=== PATIENT | male | born 2000 | race Caucasian/White ===

== ENCOUNTER 2019-03-05 14:28 | Emergency (ER) | payer OTHER, SELFPAY ==
[2019-03-05 15:03] VITALS: BP 127/81; PULSE 88; RESP 13; TEMP 37; O2SAT 100
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
[2019-03-05] MEDS: TET,DIPH,PERTUSS(ACELL),VAC/PF 0.5 ML SYRINGE IM (16:12)
[2019-03-05 16:47] VITALS: BP 120/73; PULSE 68; RESP 16; O2SAT 100
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
== END 2019-03-05 17:01 | disposition home or self-care (01) ==
PROVIDERS: Emergency Provider Nurse Practitioner Family
DX: T14.8XXA Other injury of unspecified body region, initial encounter (principal); S12.501A Unspecified nondisplaced fracture of sixth cervical vertebra, initial encounter for closed fracture; S22.030A Wedge compression fracture of third thoracic vertebra, initial encounter for closed fracture; S22.040A Wedge compression fracture of fourth thoracic vertebra, initial encounter for closed fracture; S22.020A Wedge compression fracture of second thoracic vertebra, initial encounter for closed fracture; S06.0X1A Concussion with loss of consciousness of 30 minutes or less, initial encounter; V86.59XA Driver of other special all-terrain or other off-road motor vehicle injured in nontraffic accident, initial encounter; Z23 Encounter for immunization
CPT/HCPCS: 70450; 72072; 72125; 90471; 99283; 90715

== ENCOUNTER → 2019-03-20 09:06 | Outpatient (CLI) | payer OTHER, SELFPAY ==
--- NOTE | 2019-03-20 | DI.MRI.S_ITS ---
PROCEDURE: MR CERVICAL SPINE WO CON INDICATIONS: Cervicalgia TECHNIQUE: Noncontrast sagittal T1 spin echo and T2 fast spin echo, sagittal STIR, foraminal oblique sagittal T2 fast spin echo, and axial gradient echo or T2 fast spin echo through the cervical spine. COMPARISON: None. FINDINGS: Image quality: Excellent. Alignment and Curvature: There is normal bony alignment. Bone Marrow: Marrow demonstrates normal overall signal. Spinal Cord: Visualized spinal cord has normal size and signal. No cerebellar tonsillar herniation. Paraspinous Soft Tissues: No paravertebral masses. Prevertebral soft tissues are normal in thickness. C2-C3: Normal appearance. C3-C4: Normal appearance. C4-C5: Normal appearance. C5-C6: Normal appearance. C6-C7: Normal appearance. C7-T1: Normal appearance. IMPRESSION: 1. Negative examination. 2. No central stenosis. 3. No neural foraminal narrowing. 4. No neural compression. Dictated by: Kary Rios MD, PhD on 03/20/2019 at 12:02 Approved by: Kary Rios MD, PhD on 03/20/2019 at 12:16
== END ==
PROVIDERS: PCP Family Medicine; Visit Provider Orthopaedic Surgery Orthopaedic Surgery of the Spine
DX: M54.2 Cervicalgia (principal)
CPT/HCPCS: 72141

== ENCOUNTER → 2024-06-22 16:50 | Outpatient (CLI) | payer OTHER, MEDICAID, SELFPAY | PROVIDERS: PCP Family Medicine; Visit Provider Physician Assistant Surgical | DX: R30.0 Dysuria (principal) | CPT/HCPCS: 81002; 87086 ==

== ENCOUNTER 2024-08-03 18:20 | Emergency (ER) | payer OTHER, SELFPAY ==
[2024-08-03 18:42] VITALS: BP 165/101; PULSE 98; RESP 14; TEMP 37.7; O2SAT 100; BMI 19.3
[2024-08-03 19:10] LABS: Add Manual Diff / Slide Review NO; Basophils Absolute Auto 100 /uL (0-100); Basophils Percent Auto 0.9 % (0-2); Eosinophils Absolute Auto 0 /uL (0-450); Eosinophils Percent Auto 0.1 % (2-4); Hematocrit 46.1 % (41-53); Hemoglobin 15.5 g/dL (13.5-17.5); Lymphocytes Absolute Auto 2300 /uL (1100-4500); Lymphocytes Percent Auto 29.8 % (25-40); Mean Corpuscular HGB Conc 33.5 % (30-36); Mean Corpuscular Hemoglobin 31.8 PG (26-34); Mean Corpuscular Volume 94.8 fL (80-100); Monocytes Absolute Auto 500 /uL (0-900); Monocytes Percent Auto 6.6 % (3-14); Neutrophils Absolute Auto 4900 /uL (1500-7000); Neutrophils Percent Auto 62.6 % (50-75); Platelet Count 309 X10^3/uL (150-400); Red Blood Cell Count 4.86 X10^6/uL (4.5-5.9); Red Cell Distribution Width 12.3 % (11.6-14.8); White Blood Cell Count 7.8 X10^3/uL (4.5-11.0)
--- NOTE | 2024-08-03 19:20 | ED_ITS ---
HPI - General Adult General Chief complaint: Abdominal Pain Stated complaint: upper left quad px Time Seen by Provider: 08/03/24 18:47 Source: patient Mode of arrival: Ambulatory History of Present Illness HPI narrative: Patient was a 24-year-old male. Despite the stated complaint that this is a left upper quadrant abdominal pain patient's discomfort is in his right upper quadrant. He states the symptoms started earlier today. He thinks that it was after he vomited. He was not currently nauseous or vomited since that time. He also states he has been having some loose stools which does not change the discomfort. No urinary symptoms. No skin changes. No prior abdominal surgeries. No fevers. No recent travel. Pain does not necessarily change with palpation or movement. He reports the discomfort is somewhat better now than what it was earlier. Related Data Previous Rx's Medication Instructions Recorded doxycycline hyclate 100 mg tablet 100 mg PO DAILY #30 tabs 06/30/24 Allergies Allergy/AdvReac Type Severity Reaction Status Date / Time amoxicillin Allergy Mild Rash Verified 08/03/24 18:42 Penicillins Allergy Mild Rash Verified 08/03/24 18:42 Review of Systems Review of Systems Narrative: See HPI Patient History Medical History Allergies (~2003) Cystic acne (~2014) Family history non-contributory Social History Smoking Status: Current every day smoker Smoking Status: Current every day smoker Exam Initial Vital Signs Initial Vital Signs: Vital Signs Temperature 99.8 F H 08/03/24 18:42 Pulse Rate 98 H 08/03/24 18:42 Respiratory Rate 14 08/03/24 18:42 Blood Pressure 165/101 H 08/03/24 18:42 Pulse Oximetry 100 08/03/24 18:42 Oxygen Delivery Method Room Air 08/03/24 18:42 Const General: cooperative, comfortable and No ill appearing [facility] Head: normal to inspection and normocephalic Resp Effort & Inspection: normal respiratory effort GI Inspection: normal to inspection and non-distended Palpation: soft, No firm, No guarding and tender Skin General: no rashes or lesions noted Course Orders Ordered: ED Orders 08/03/24 18:58 Complete Blood Count AUTO DIFF Stat Comprehensive Metabolic Panel Stat Lipase Stat 08/03/24 19:25 Urine Microscopic Stat Discontinued Medications Ondansetron HCl (Ondansetron 4 Mg/2 Ml Inj) 4 mg IV NOW PRN PRN Reason: Nausea And Vomiting Ondansetron HCl (Ondansetron 4 Mg Odt) 4 mg PO NOW PRN PRN Reason: Nausea And Vomiting Vital Signs Vital signs: Vital Signs - 8 hr 08/03/24 18:42 08/03/24 19:28 Temperature 99.8 F H Pulse Rate 98 H 93 H Respiratory Rate 14 18 Blood Pressure 165/101 H 135/86 Pulse Oximetry 100 100 Oxygen Delivery Method Room Air Room Air Medical Decision Making Lab Data Lab results reviewed: Yes I reviewed the patient's lab results. 08/03/24 18:58 08/03/24 18:58 Labs: Lab Results 08/03/24 08/03/24 Range/Units 18:58 19:25 WBC 7.8 (4.5-11.0) X10^3/uL RBC 4.86 (4.5-5.9) X10^6/uL Hgb 15.5 (13.5-17.5) g/dL Hct 46.1 (41-53) % MCV 94.8 (80-100) fL MCH 31.8 (26-34) PG MCHC 33.5 (30-36) % RDW 12.3 (11.6-14.8) % Plt Count 309 (150-400) X10^3/uL Neut % (Auto) 62.6 (50-75) % Lymph % (Auto) 29.8 (25-40) % [place] % (Auto) 6.6 (3-14) % Eos % (Auto) 0.1 L (2-4) % Baso % (Auto) 0.9 (0-2) % Neut # (Auto) 4900 (3533-0426) /uL Lymph # (Auto) 2300 (9795-5731) /uL [place] # (Auto) 500 (0-900) /uL Eos # (Auto) 0 (0-450) /uL Baso # (Auto) 100 (0-100) /uL Sodium 137 (137-145) mmol/L Potassium 3.9 (3.4-5.1) mmol/L Chloride 101 (98-107) mmol/L Carbon Dioxide 28 (22-32) mmol/L BUN 9 (9-20) mg/dL Creatinine 0.83 (0.66-1.25) mg/dL Estimated GFR > 60 (>60) mL/min BUN/Creatinine Ratio 10.8 (6-22) Glucose 99 (70-100) mg/dL Calcium 10.1 (8.4-10.2) mg/dL Total Bilirubin 0.8 (0.2-1.3) mg/dL AST 41 (17-59) IU/L ALT 33 (<50) IU/L Alkaline Phosphatase 52 (38-126) U/L Total Protein 8.0 (6.3-8.2) g/dL Albumin 5.0 (3.5-5.0) g/dL Globulin 3.0 (1.7-4.1) g/dL Albumin/Globulin Ratio 1.7 (1.0-2.8) Lipase 53 (23-300) U/L Urine RBC None seen (0-5/HPF) Urine WBC None seen (0-5/HPF) Ur Squamous Epith Cells None seen (0-5/HPF) Urine Bacteria None seen (None) Ur Culture Indicated? Cult not indicated Vol Urine Centrifuged 10ml (spun) Urine Dip Bedside Urine Glucose Negative Bedside Urine Bilirubin - Negative Bedside Urine Ketone - Negative Urine Specific [place] 1.010 Bedside Urine Occult Blood - Negative Bedside Urine pH 7.5 Bedside Urine Protein - Negative Bedside Urine Urobilinogen - Negative Bedside Urine Nitrite - Negative Bedside Urine Leukocytes +/- 15 Esterase Point of care testing: Urine Dip Bedside Urine Glucose Negative Bedside Urine Bilirubin - Negative Bedside Urine Ketone - Negative Urine Specific [place] 1.010 Bedside Urine Occult Blood - Negative Bedside Urine pH 7.5 Bedside Urine Protein - Negative Bedside Urine Urobilinogen - Negative Bedside Urine Nitrite - Negative Bedside Urine Leukocytes +/- 15 Esterase MDM Narrative Medical decision making narrative: Patient was has a benign abdominal exam. No skin changes over the area concerning for zoster. His labs are unremarkable. Urinalysis is unremarkable. I have low suspicion that this is renal colic. Low suspicion that this is biliary colic. Low suspicion for appendicitis/bowel obstruction based on his presentation. Provided reassurance. Will hold on a CT scan for now although informed the patient that if he has worsening symptoms or new symptoms that he does need to return to the emergency department for re-evaluation. He expressed understanding and agreement with the plan. Discharge Plan Departure Patient Disposition: Home Clinical Impression: Abdominal pain Instructions: DI for Abdominal Pain-Adult Activity Restrictions/Additional Instructions: I recommend just conservative measures now to include Tylenol and or ibuprofen. If you start to develop new symptoms or worsening symptoms or develop a rash please return to the emergency department for further evaluation. Prescriptions: No Action doxycycline hyclate 100 mg tablet 100 mg PO DAILY Qty: 30 2RF Referrals: Chaya Tran MD [Primary Care Provider] - Stand Alone Forms: Patient Portal/API/Survey
[2024-08-03 19:23] LABS: Alanine Aminotransferase 33 IU/L (<50); Albumin Globulin Ratio 1.7 (1.0-2.8); Alkaline Phosphatase 52 U/L (38-126); Aspartate Aminotransferase 41 IU/L (17-59); BUN Creatinine Ratio 10.8 (6-22); Bilirubin Total 0.8 mg/dL (0.2-1.3); Blood Urea Nitrogen 9 mg/dL (9-20); Calcium 10.1 mg/dL (8.4-10.2); Carbon Dioxide 28 mmol/L (22-32); Chloride 101 mmol/L (98-107); Estimated Glomerular Filt Rate > 60 mL/min (>60); Glucose 99 mg/dL (70-100); HEMOLYSIS < 15 (0-50); Lipase 53 U/L (23-300); Potassium 3.9 mmol/L (3.4-5.1); Sodium 137 mmol/L (137-145)
[2024-08-03 19:28] VITALS: BP 135/86; PULSE 93; RESP 18; O2SAT 100
[2024-08-03 19:42] LABS: Bacteria Urine None Seen; Culture Indicated Urine Cult Not Indicated; RBC Urine None Seen (0-5/HPF); Squamous Epithelial Cell Urine None Seen (0-5/HPF); Urine Volume 10mL (spun); WBC Urine None Seen (0-5/HPF)
== END 2024-08-03 20:01 | disposition home or self-care (01) ==
PROVIDERS: Emergency Provider Emergency Medicine; PCP Family Medicine
DX: R10.12 Left upper quadrant pain (principal); R10.11 Right upper quadrant pain
CPT/HCPCS: 36415; 80053; 81003; 81015; 83690; 85025; 99283

== ENCOUNTER → 2024-10-19 13:55 | Outpatient (CLI) | payer OTHER, SELFPAY ==
--- NOTE | 2024-10-19 13:57 | DI.US.S_ITS ---
PROCEDURE: US SCROTUM INDICATIONS: Lump in scrotum TECHNIQUE: Real-time scanning was performed of the scrotum and testicles, with image documentation. Color and pulse Doppler interrogation was performed of both testicles. COMPARISON: None. FINDINGS: Right: Testicle is normal in size at 5.0 x 2.2 x 3.2 cm, and homogenous in echotexture. Epididymis is normal in overall size and morphology. No hydrocele or varicoceles. Overlying scrotal skin is normal in thickness. Left: Testicle is normal in size at 4.1 x 2.5 x 2.9 cm, and homogeneous in echotexture. Epididymis is normal in overall size and morphology. Small hydrocele . No varicoceles. Overlying scrotal skin is normal in thickness. Area of palpable abnormality appears to correspond to the epididymis and pampiniform plexus. Doppler: Color and pulse Doppler demonstrate normal and symmetric arterial flow in both testicles. IMPRESSION: No signs of testicular torsion or epididymitis. No soft tissue mass. Small left hydrocele. Approved by: Efrain Lancaster M.D. on 10/19/2024 at 15:27
== END ==
PROVIDERS: PCP Family Medicine; Referring Provider Family Medicine; Visit Provider Family Medicine
DX: N50.89 Other specified disorders of the male genital organs (principal); N43.3 Hydrocele, unspecified
CPT/HCPCS: 76870; 93976

== ENCOUNTER 2025-03-19 08:26 | Emergency (ER) | payer OTHER, SELFPAY ==
[2025-03-19 09:14] VITALS: BP 145/84; PULSE 99; RESP 20; TEMP 37; O2SAT 100; BMI 19.5
--- NOTE | 2025-03-19 09:18 | DI.RAD.S_ITS ---
PROCEDURE: XR SACRUM COCCYX MIN 2V INDICATIONS: back injury TECHNIQUE: 3 views of the sacrum and coccyx acquired. COMPARISON: None. FINDINGS: Bones: No fractures or dislocations. No suspicious bony lesions. Soft tissues: Visualized bowel gas pattern is normal. No suspicious soft tissue densities. IMPRESSION: No acute sacral or coccygeal fracture. Dictated by: Yusef Núñez M.D. on 03/19/2025 at 9:44 Approved by: Yusef Núñez M.D. on 03/19/2025 at 9:45
--- NOTE | 2025-03-19 09:18 | DI.RAD.S_ITS ---
PROCEDURE: XR LUMBAR SPINE 2-3V INDICATIONS: back injury TECHNIQUE: 2 views of the lumbar spine were acquired. COMPARISON: None. FINDINGS: Bones: 5 [id number] vertebrae are present. There is straightening of normal lumbar lordosis. No vertebral body compression fractures. No suspicious bony lesions. Soft tissues: Overlying bowel gas pattern is normal. No suspicious soft tissue calcifications. IMPRESSION: No acute vertebral body compression fracture or spondylolisthesis. Dictated by: Yusef Núñez M.D. on 03/19/2025 at 9:45 Approved by: Yusef Núñez M.D. on 03/19/2025 at 9:45
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
[2025-03-19 12:51] VITALS: BP 117/59; PULSE 66; RESP 16; TEMP 37.1; O2SAT 99
== END 2025-03-19 12:53 | disposition home or self-care (01) ==
PROVIDERS: Emergency Provider Physician Assistant Medical; PCP Family Medicine
DX: S39.012A Strain of muscle, fascia and tendon of lower back, initial encounter (principal); X50.0XXA Overexertion from strenuous movement or load, initial encounter; Y99.0 Civilian activity done for income or pay
CPT/HCPCS: 72100; 72220; 81003; 99281; 99283